=== PATIENT | female | born 1955 | race Caucasian/White ===

== ENCOUNTER → 2024-04-28 | Outpatient (CLI) | payer OTHER, SELFPAY ==
--- NOTE | 2024-04-28 13:00 | XR_ITS ---
Examination: Breast ultrasound complete, bilateral Date and time of exam: April 28, 2024 1335 hours INDICATIONS: Mammogram March 14, 2024 14 mm focal asymmetry upper right breast 5.9 cm from the nipple Technique: Real-time grayscale ultrasonographic imaging bilateral breasts, including all 4 quadrants as well as nipple retroareolar and axillary regions. Findings: Sonographic images right and left breast demonstrated no cystic or solid masses IMPRESSION: BI-RADS Category 1: Negative studies
--- NOTE | 2024-04-28 14:00 | XR_ITS ---
Examination: Diagnostic digital mammography, unilateral, right Computer aided detection 3-D breast Tomosynthesis, unilateral Date and time of exam: April 18, 2024 1345 hours INDICATIONS: Mammogram March 14, 2024 14 mm focal asymmetry upper right breast MLO view, 5.9 cm flow nipple Technique: Nonmagnified MLO, CC views of the right breast have been obtained, reconstructed from 3-D Tomosynthesis images. R2 computer aided detection program utilized for evaluation of suspicious masses and/or abnormal calcifications. 3-D Tomosynthesis images obtained. Findings: The breasts are heterogeneously dense, which may obscure small masses No suspicious mass is confirmed on the spot compression views Impression: BI-RADS category 2: Benign findings Return to yearly follow-up mammography
== END | disposition home or self-care (01) ==
PROVIDERS: PCP Family Medicine; Referring Provider Family Medicine; Visit Provider Family Medicine
DX: R92.321 Mammographic fibroglandular density, right breast (principal); N64.89 Other specified disorders of breast
CPT/HCPCS: 76641; 77061; 77065; G0279

== ENCOUNTER → 2024-06-27 | Outpatient (CLI) | payer OTHER, SELFPAY ==
[2024-06-27 11:40] LABS: Collection Type, Urine Clean Catch
[2024-06-27 12:03] LABS: Basophils % (Auto) 0 % (0-2.5); Eosinophils % (Auto) 1 % (0-10); Hematocrit 34.8 % (36.0-46.0); Immature Granulocytes % (Auto) 0 % (0-0); Immature Granulocytes Auto 0.01 Thou/mm3 (0.00-0.00); Lymphocytes # (Auto) 1.9 Thou/mm3 (1.0-4.8); Lymphocytes % (Auto) 39 % (10-50); Mean Corpuscular HGB Conc 31.6 g/dl (31.0-37.0); Mean Corpuscular Hemoglobin 26.4 pg (25.0-35.0); Mean Corpuscular Volume 84 fL (80-100); Monocytes # (Auto) 0.3 Thou/mm3 (0.0-0.8); Monocytes % (Auto) 7 % (0-12); Neutrophils # (Auto) 2.5 Thou/mm3 (1.8-7.7); Neutrophils % (Auto) 53 % (37-80); Nucleated Red Blood Cell % 0 /100 WBC (0); Platelet Count 301 Thou/mm3 (140-440); RDW Standard Deviation 48.7 fL (36.4-46.3); Red Blood Count 4.16 Miln/mm3 (4.00-5.20); White Blood Count 4.8 Thou/mm3 (3.6-11.0)
[2024-06-27 12:12] LABS: Glucose Estimated Average 114 mg/dL (80-131); Hemoglobin A1C 5.6 % Hgb (4.8-6.0)
[2024-06-27 12:15] LABS: Creatinine MALB Rnd Ur 104 mg/dL (30-125); Microalbumin Creat Ratio 20 mg/gCrea (<30); Microalbumin, Random Urine 21 mg/L (0-300)
[2024-06-27 12:25] LABS: Alanine Aminotransferase 17 U/L (10-49); Albumin, Serum 4.3 gm/dL (3.4-4.8); Albumin/Globulin Ratio 1.4 (1.2-2.2); Alkaline Phosphatase 112 U/L (46-116); Anion Gap 9 (7-16); Aspartate Amino Transferase 16 U/L (0-34); BUN/Creatinine Ratio 18 Ratio (12-20); Bilirubin,Total 0.4 mg/dL (0.3-1.2); Blood Urea Nitrogen 20 mg/dL (9-23); Calcium 9.2 mg/dL (8.3-10.6); Calcium (Corrected) 9.2 mg/dL (8.5-10.1); Carbon Dioxide 25.3 mMol/L (20.0-31.0); Cardiac Risk Estimate 3.7 RATIO (3.7-5.6); Chloride 101 mMol/L (98-107); Cholesterol 202 mg/dL (132-200); Creatinine (Component) 1.1 mg/dL (0.6-1.3); Glucose 116 mg/dL (74-106); HDL Cholesterol 54 mg/dL (40-60); LDL Cholesterol,Calculated 116 mg/dL (0-130); Osmolality,Calculated 273 (275-295); Potassium 4.7 mMol/L (3.4-5.1); Sodium 135 mMol/L (136-145); Thyroid Stimulating Hormone 1.35 uIU/mL (0.55-4.78); Total Protein 7.3 gm/dL (5.7-8.2); Triglycerides 160 mg/dL (30-150); Uric Acid 5.5 mg/dL (3.1-7.8); eGFR 54 See Note
[2024-06-27 12:34] LABS: Bacteria,Urine 1+; Bilirubin,Urine Negative (Negative); Blood,Urine Negative (Negative); Color,Urine Yellow (Lt Yel-Yel); Glucose, Urine Negative (Negative); Hyaline Casts,Urine < 1 /hpf (0-1); Ketones,Urine Negative (Negative); Leukocyte Esterase,Urine Positive (Negative); Nitrite,Urine Positive (Negative); PH,Urine 7.5 (5.0-7.0); Protein,Urine Trace (Neg - Trace); RBC,Urine 1 /hpf (0-3); Specific Gravity,Urine 1.016 (1.001-1.035); Squamous Epithelial Cell,Urine 30 /hpf (0-5); Urobilinogen,Urine Negative mg/dL (0.0-1.0); WBC,Urine 33 /hpf (0-5)
[2024-06-27 12:39] LABS: Clarity,Urine Turbid (Clear/Hazy)
== END | disposition home or self-care (01) ==
LOC: COPL 11:18
PROVIDERS: PCP Family Medicine; Referring Provider Family Medicine; Visit Provider Family Medicine
DX: Z00.00 Encounter for general adult medical examination without abnormal findings (principal); E11.9 Type 2 diabetes mellitus without complications; E78.2 Mixed hyperlipidemia; I10 Essential (primary) hypertension; E79.0 Hyperuricemia without signs of inflammatory arthritis and tophaceous disease
CPT/HCPCS: 36415; 80053; 80061; 81001; 82043; 82570; 83036; 84443; 84550; 85025

== ENCOUNTER → 2024-11-05 | Outpatient (CLI) | payer OTHER, SELFPAY ==
[2024-11-05 11:48] LABS: Glucose Estimated Average 108 mg/dL (80-131); Hemoglobin A1C 5.4 % Hgb (4.8-6.0)
[2024-11-05 11:51] LABS: Alanine Aminotransferase 17 U/L (10-49); Albumin, Serum 4.2 gm/dL (3.4-4.8); Albumin/Globulin Ratio 1.3 (1.2-2.2); Alkaline Phosphatase 93 U/L (46-116); Anion Gap 3 (7-16); Aspartate Amino Transferase 15 U/L (0-34); BUN/Creatinine Ratio 15 Ratio (12-20); Bilirubin,Total 0.3 mg/dL (0.3-1.2); Blood Urea Nitrogen 15 mg/dL (9-23); Calcium 8.9 mg/dL (8.3-10.6); Calcium (Corrected) 8.9 mg/dL (8.5-10.1); Carbon Dioxide 26.0 mMol/L (20.0-31.0); Cardiac Risk Estimate 3.9 RATIO (3.7-5.6); Chloride 107 mMol/L (98-107); Cholesterol 179 mg/dL (132-200); Creatinine (Component) 1.0 mg/dL (0.6-1.3); Globulin 3.2 gm/dL (2.3-3.5); Glucose 103 mg/dL (74-106); HDL Cholesterol 46 mg/dL (40-60); LDL Cholesterol,Calculated 103 mg/dL (0-130); Osmolality,Calculated 272 (275-295); Potassium 4.4 mMol/L (3.4-5.1); Sodium 136 mMol/L (136-145); Total Protein 7.4 gm/dL (5.7-8.2); Triglycerides 151 mg/dL (30-150); eGFR > 60 See Note
== END | disposition home or self-care (01) ==
LOC: COPL 10:37
PROVIDERS: PCP Family Medicine; Referring Provider Family Medicine; Visit Provider Family Medicine
DX: E11.9 Type 2 diabetes mellitus without complications (principal); E78.2 Mixed hyperlipidemia; I10 Essential (primary) hypertension
CPT/HCPCS: 36415; 80053; 80061; 83036

== ENCOUNTER → 2025-03-19 | Outpatient (CLI) | payer OTHER, SELFPAY ==
[2025-03-19 12:02] LABS: Glucose Estimated Average 117 mg/dL (80-131); Hemoglobin A1C 5.7 % Hgb (4.8-6.0)
[2025-03-19 12:09] LABS: Alanine Aminotransferase 27 U/L (10-49); Albumin, Serum 4.9 gm/dL (3.4-4.8); Albumin/Globulin Ratio 1.6 (1.2-2.2); Alkaline Phosphatase 108 U/L (46-116); Anion Gap 6 (7-16); Aspartate Amino Transferase 20 U/L (0-34); BUN/Creatinine Ratio 13 Ratio (12-20); Bilirubin,Total 0.4 mg/dL (0.3-1.2); Blood Urea Nitrogen 13 mg/dL (9-23); Calcium 9.3 mg/dL (8.3-10.6); Calcium (Corrected) 9.3 mg/dL (8.5-10.1); Carbon Dioxide 27.0 mMol/L (20.0-31.0); Cardiac Risk Estimate 3.8 RATIO (3.7-5.6); Chloride 107 mMol/L (98-107); Cholesterol 203 mg/dL (132-200); Creatinine (Component) 1.0 mg/dL (0.6-1.3); Globulin 3.0 gm/dL (2.3-3.5); Glucose 104 mg/dL (74-106); HDL Cholesterol 54 mg/dL (40-60); LDL Cholesterol,Calculated 115 mg/dL (0-130); Osmolality,Calculated 279 (275-295); Potassium 4.3 mMol/L (3.4-5.1); Sodium 140 mMol/L (136-145); Total Protein 7.9 gm/dL (5.7-8.2); Triglycerides 170 mg/dL (30-150); Uric Acid 6.2 mg/dL (3.1-7.8); eGFR > 60 See Note
== END | disposition home or self-care (01) ==
LOC: COPL 11:12
PROVIDERS: PCP Family Medicine; Referring Provider Family Medicine; Visit Provider Family Medicine
DX: E78.2 Mixed hyperlipidemia (principal); I10 Essential (primary) hypertension; E11.69 Type 2 diabetes mellitus with other specified complication; M10.9 Gout, unspecified
CPT/HCPCS: 36415; 80053; 80061; 83036; 84550